=== PATIENT | female | born 1990 | race Caucasian/White ===

== ENCOUNTER 2021-08-03 11:23 | Emergency (ER) | payer MEDICAID ==
[~2021-08-03] VITALS: Ht 167.6 cm; Wt 82.6 kg
[2021-08-03 11:23] VITALS: BP 122/82
--- NOTE | 2021-08-03 11:23 | NUR ---
PT [facility] BLS TO BED 06.
--- NOTE | 2021-08-03 11:46 | NUR ---
30 Y/O FEMALE BIBA FROM HOME C/O LOWER ABDOMINAL PAIN RADIATING TO BACK X2 DAYS. PT HAD SURGERY AT [facility] ON SUNDAY FOR KIDNEY STONE REMOVAL (LASER LITHOTRIPSY) WITH STENT PLACED ON R URETER. PT STATES PAIN HAS WORSENED AND FOLLOW UP WITH SURGEON IS END OF AUGUST. +NAUSEA WITH PAIN. DENIES VOMITING/DIARRHEA/FEVER/CHILLS. +HEMATURIA AND DYSURIA. ABD IS FLAT, SOFT, AND TENDER ON PALPATION. PT REPORTS TAKING NORCO AT 2 AM WITHOUT RELIEF AND TRAMADOL AT 0730 WITHOUT RELIEF. PT IN VISIABLE PAIN AND DISCOMFORT. PT ON SERVICE TECHNICIAN, VSS. PT A/O X4 WITH EVEN AND UNLABORED RESPIRATIONS. PMH:KIDNEY STONES ALLERGIES:BACTRIM
--- NOTE | 2021-08-03 11:49 | NUR ---
DR DAVIS AT BEDSIDE EVALUATING PT
[2021-08-03] MEDS ORDERED: MORPHINE SULFATE 4 MG/ML SYR IM ONE ×2 (11:55→13:55)
[2021-08-03] MEDS ORDERED: KETOROLAC 30 MG/ML VIAL IM ONE (11:55)
[2021-08-03 12:26] LABS: ALBUMIN 3.4 g/dL (3.4-5.0); ANION GAP 10.3 (8-16); CARBON DIOXIDE 22.1 mmol/L (21-32); POTASSIUM 3.4 mmol/L (3.5-5.1); TOTAL BILIRUBIN 0.3 mg/dL (0.0-1.0)
[2021-08-03 12:30] LABS: BASOPHILS # (AUTO) 0.1 K/uL (0.00-0.22); BASOPHILS % (AUTO) 0.6 % (0.0-2.0); EOSINOPHILS % (AUTO) 0.4 % (0.0-4.0); HEMOGLOBIN 12.3 g/dL (12.0-16.0); LYMPHOCYTES # (AUTO) 2.7 K/uL (2.5-16.5); LYMPHOCYTES % (AUTO) 29.6 % (20.5-51.1); MEAN CORPUSCULAR HEMOGLOBIN 30 pg (27-31); MEAN CORPUSCULAR HGB CONC 34 g/dL (33-37); MEAN CORPUSCULAR VOLUME 86.6 fL (80-94); MONOCYTES # (AUTO) 0.6 K/uL (0.8-1.0); MONOCYTES % (AUTO) 7.1 % (1.7-9.3); NEUTROPHILS # (AUTO) 5.7 K/uL (1.8-7.7); NEUTROPHILS % (AUTO) 62.3 % (42.2-75.2); PLATELET COUNT (AUTO) 233 K/uL (140-450); RED BLOOD CELL COUNT(AUTO) 4.15 MIL/uL (4.20-5.40); WHITE BLOOD COUNT (AUTO) 9.1 K/uL (4.8-10.8)
[2021-08-03 12:46] LABS: APPEARANCE,URINE CLOUDY (CLEAR); BILIRUBIN,URINE 1+ (NEGATIVE); BLOOD, URINE 3+ (NEGATIVE); COLOR,URINE RED (YELLOW); LEUKOCYTE ESTERASE ,URINE 2+ (NEGATIVE); NITRITE, URINE POSITIVE (NEGATIVE); UGLUCOSE NEGATIVE (NEGATIVE)
[2021-08-03 13:27] LABS: RBC,URINE >20 (MANY) /HPF (0-5)
[2021-08-03 13:28] LABS: CALCIUM OXALATE CRYSTALS,UR None Seen /HPF (None Seen); COARSE GRANULAR CASTS,URINE None Seen /LPF (None Seen); FINE GRANULAR CASTS,URINE None Seen /LPF (None Seen); HYALINE CASTS, URINE None Seen /LPF (None Seen); OTHER CASTS, URINE None Seen /LPF (None Seen); OTHER CRYSTALS,URINE None Seen /HPF (None Seen); RED BLOOD CELL CASTS,URINE None Seen /LPF (None Seen); TRICHOMONAS,URINE None Seen /HPF (None Seen); TRIPLE PHOSPHATE CRYSTAL,UR None Seen /HPF (None Seen); URIC ACID CRYSTALS,URINE None Seen /HPF (None Seen); URINE AMORPHOUS URATE None Seen /HPF (None Seen); WAXY CASTS,URINE None Seen /LPF (None Seen); YEAST,URINE None Seen /HPF (None Seen)
[2021-08-03] MEDS ORDERED: LEVO750T51 PO (14:09)
[2021-08-03] MEDS ORDERED: MORPHINE SULFATE 4 MG/ML SYR IVP ONE (14:10)
[2021-08-03] MEDS ORDERED: LEVOFLOXACIN 750 MG/D5W PREMIX 150 ML IV ONE (14:10)
[2021-08-03 16:07] VITALS: BP 100/70
--- NOTE | 2021-08-03 16:07 | NUR ---
Patient discharged with v/s stable. Written and verbal after care instructions ABOUT UTI given and explained. Patient alert, oriented and verbalized understanding of instructions. Ambulatory with steady gait. All questions addressed prior to discharge. ID band removed. Patient advised to follow up with PMD. Rx of LEVOFLOXACIN given. Patient educated on indication of medication including possible reaction and side effects. Opportunity to ask questions provided and answered.
--- NOTE | 2021-08-03 16:07 | NUR ---
IV removed, catheter intact and site benign. Applied folded 4x4 gauze and tape to stop bleeding.
== END 2021-08-03 16:07 | disposition home or self-care (01) ==
LOC: MED 11:23
DX: T83.192A Other mechanical complication of indwelling ureteral stent, initial encounter (principal); N39.0 Urinary tract infection, site not specified; Z87.442 Personal history of urinary calculi; Z88.2 Allergy status to sulfonamides; Z88.1 Allergy status to other antibiotic agents; Y99.8 Other external cause status
CPT/HCPCS: 36415; 74176; 80053; 81001; 81025; 83690; 85025; 87086; 96365; 96372; 96375; 99285; J1885; J1956; J2270